=== PATIENT | male | born 1960 | race Caucasian/White ===

== ENCOUNTER → 2016-09-10 | Outpatient (CLI) | payer MEDICARE ==
[~2016-09-10] MED LIST: ALPRAZOLAM0.5 MG PO; AMIODARONE 200200 MG PO; AXIRON30 MG/1.5 TD; BISOPROLOL 5MG T5 MG PO; BISOPROLOL/HCTZ1 TA2 PO; DIGOXIN0.125 MG PO; DIOVAN80 MG PO; ECOTRIN325 MG PO; FUROSEMIDE40 MG PO; HYDROCHLOROTH12.5 M1 PO; LASIX40 MG PO; MAGNESIUM CITRA1 BOT PO; METOPROLOL 25 M25 MG PO; MULTI VITAMINS1 TAB PO; MULTIVITAMIN1 TA2 PO; POTASSIUM CHLO20 ME2 PO; PRAVACHOL 40MG40 MG PO; PRAVASTATIN 40M40 MG PO; RAMIPRIL5 MG PO; RANITIDINE HCL150 MG PO; REGLAN 10 MG TA10 MG PO; SODIUM BICARBO650 MG PO; SOTALOL 80MG TA80 MG PO; SPIRONOLACTONE25 MG PO; VIT D3 PO; WARFARIN SOD5 MG PO; WARFARIN SODIU7.5 MG PO
[2016-09-10 10:31] LABS: HEMOGLOBIN 14.2 g/dL (14.1-18.0); LYMPH % 16.5 % (10-50)
[2016-09-10 11:58] LABS: BUN 13 mg/dL (7-18)
[2016-09-10 12:10] LABS: GFR (ESTIMATED) 87 ML/MIN (>60)
== END ==
LOC: LAB 10:12
PROVIDERS: Internal Medicine
DX: E13.65 Other specified diabetes mellitus with hyperglycemia (principal); I10 Essential (primary) hypertension; I48.91 Unspecified atrial fibrillation; B96.89 Other specified bacterial agents as the cause of diseases classified elsewhere; F41.9 Anxiety disorder, unspecified

== ENCOUNTER → 2017-02-22 | Outpatient (CLI) | payer MEDICARE ==
[2017-02-22 18:02] LABS: LYMPH # 1.3 K/mm3 (0.7-4.5); LYMPH % 16.5 % (10-50)
[2017-02-22 18:04] LABS: HEMOGLOBIN 16.1 g/dL (14.1-18.0)
[2017-02-22 20:18] LABS: BUN 12 mg/dL (7-18)
[2017-02-22 20:56] LABS: GFR (ESTIMATED) 86 ML/MIN (>60)
== END ==
LOC: LAB 16:27
PROVIDERS: Internal Medicine
DX: E13.65 Other specified diabetes mellitus with hyperglycemia (principal); I10 Essential (primary) hypertension; I48.91 Unspecified atrial fibrillation; B96.89 Other specified bacterial agents as the cause of diseases classified elsewhere; F41.9 Anxiety disorder, unspecified

== ENCOUNTER → 2017-06-20 | Outpatient (CLI) | payer MEDICARE ==
[2017-06-20 10:27] LABS: HEMOGLOBIN 15.5 g/dL (14.1-18.0); LYMPH % 12.6 % (10-50)
[2017-06-20 13:05] LABS: BUN 12 mg/dL (7-18)
[2017-06-20 13:10] LABS: GFR (ESTIMATED) 76 ML/MIN (>60)
== END ==
LOC: LAB 10:06
PROVIDERS: Internal Medicine
DX: E13.65 Other specified diabetes mellitus with hyperglycemia (principal); F41.9 Anxiety disorder, unspecified; I10 Essential (primary) hypertension; I48.91 Unspecified atrial fibrillation